=== PATIENT | female | born 1950 | race Caucasian/White ===

== ENCOUNTER → 2016-11-02 07:38 | Outpatient (CLI) | payer MEDICARE | END | disposition home or self-care (01) | LOC: D.MRI 07:38 | DX: M54.12 Radiculopathy, cervical region (principal) ==

== ENCOUNTER → 2016-11-07 17:03 | Outpatient (CLI) | payer MEDICARE | END | disposition home or self-care (01) | LOC: D.MAMMO 09:30 | DX: Z12.31 Encounter for screening mammogram for malignant neoplasm of breast (principal) ==

== ENCOUNTER → 2016-12-02 09:42 | Outpatient (CLI) | payer MEDICARE | END | disposition home or self-care (01) | LOC: D.MRI 09:42 | DX: M51.36 Other intervertebral disc degeneration, lumbar region (principal) ==

== ENCOUNTER 2018-04-19 23:20 | Outpatient (CLI) | payer MEDICARE ==
[~2018-04-19] VITALS: Ht 160 cm; Wt 59.1 kg
--- NOTE | ~2018-04-19 | OP ---
PATIENT NAME: LEONILA CHAMBERLAIN V MEDICAL RECORD: [id number] :50 LOCATION:D.M2 D.2117 ADMISSION DATE:04/20/18 SURGEON: ADWOA GERONIMO MD DATE OF OPERATION: 04/20/2018 PROCEDURE: Left heart catheterization, LV gram, coronary angiogram, MORALES angiogram, SVG angiogram. INDICATIONS: Unstable angina. PROCEDURE IN DETAIL: The patient was brought to cardiac catheterization lab in stable condition. Both groins were sterilely prepped and draped. The right femoral artery was accessed using modified Seldinger technique. We were then able to place a 6-Nepali sheath in a retrograde fashion. We were then able to utilize selective angiography into the left coronary artery, the right coronary artery, the vein graft to the RCA, the MORALES to the LAD and the left ventricular cavity for complete left heart catheterization and grafts. FINDINGS: 1. Left main has mild plaquing. 2. LAD is a small vessel and has diffuse atherosclerotic changes in the 50% to 70% range with no severe stenosis seen and competitive flow in the distal LAD segment from MORALES graft. 3. The circumflex is a nondominant vessel, has 100% occlusion distally. In the ostium, there is to 50% to 70% stenosis. 4. The RCA has a long 99% stenoses in it with competitive flow from a vein graft. 5. The MORALES to the LAD is widely patent; however, it is in a small vessel and is not well matured, appears to have share competitive flow with the distal LAD solomon system. 6. The SVG to the RCA is widely patent. HEMODYNAMICS: Left ventricular ejection fraction is 65%. End-diastolic pressure is normal. There is no significant mitral regurgitation. There is no gradient across the aortic valve. IMPRESSION: Two of two grafts patent with an intermediate stenosis in the circumflex. We were trying to do an FFR on the circumflex, but the equipment did not allow. We are going to try medical management initially and then if that fails, go forward with stress testing to localize any ischemic areas, but at this point in time, the patient has good perfusion in all 3 vascular territories. TRANSINT:[id number] Voice Confirmation ID: [id number] DOCUMENT ID: [id number] ADWOA GERONIMO MD at 1348 CC: [id number] DICTATION DATE: 04/20/18 1033 FIELD MANAGER: 04/20/18 1449 DIS IN 04/20/18 [facility] [address] [id number]
--- NOTE | ~2018-04-19 | HEMODYNAMI ---
PATIENT:LEONILA CHAMBERLAIN V MEDICAL RECORD: [id number] : 50 [id number] ADMISSION DATE: 04/20/18 Generatedon:04/20/201810:29 Patient name: LEONILA CHAMBERLAIN Patient #: [id number] SSN: DO B: 1950 Date of study: 04/20/2018 Page: Of Hemodynamic Procedure Report Patient Data Patient Demographics Procedure consent was obtained First Name: LEONILA Gender: Female Last Name: BULMARO : 1950 Middle Initial: V Age: 67 year(s) Patient #: [id number] Race: Unknown Additional ID: [id number] Contact details [address]: [address] [place] [address] State: [place] City: [place] Zip code: [address] Past Medical History Allergies Allergen Reaction Date Comments Reported Other allergy 04/20/2018 shellfish Admission Admission Data Admission Date: 04/20/2018 Admission Time: 3:24 Room #: D.[facility] Weight (lbs.): 130.27 Weight (kg.): 59.09 Lab Results Lab Result Date: 04/19/2018 Lab Result Time: 23:40 Biochemistry Name Units Result Min Max BUN mg/dl 17 --(---*)-- 7 18 Creatinine mg/dl 0.7 --(*---)-- 0.6 1.3 CBC Name Units Result Min Max Hematocrit % 38.2 *-(----)-- 42 54 Hemoglobin g/dl 13.1 -*(----)-- 13.5 17.5 Procedure Procedure Types Cath Procedure Diagnostic Procedure LHC LHC w/Coronaries w/Grafts Sedation Charges Moderate Sedation up to 30 minutes Procedure Description Procedure Date Procedure Date: 04/20/2018 Procedure Start Time: 9:43 Procedure End Time: 10:28 Procedure Staff Name Function Akira Paige MD Performing Physician Zabrina Snyder RT Monitor Bell Soria RT Scrub Jules Levy RN Nurse Procedure Data Cath Procedure Fluoroscopy Diagnostic fluoroscopy Total fluoroscopy Time: 4.7 time: 4.7 min min Diagnostic fluoroscopy Total fluoroscopy dose: 374 dose: 374 mGy mGy Contrast Material Contrast Material Type Amount (ml) Isovue 300 107 Entry Location Entry Primary Successful Side Size Upsize Upsize Entry Closure Succes sful Closure Location (Fr) 1 (Fr) 2 (Fr) Remarks Device Remarks Femoral Right 5 Fr 6 Fr artery Short Estimated blood loss: 10 ml Diagnostic catheters Device Type Used For End Catheter Placement MULTIPACK JL 4.0 5Fr Procedure catheter MULTIPACK 3DRC 5Fr Procedure catheter DIAGNOSTIC MPA-2 5Fr Procedure catheter ([id number]) MULTIPACK Pigtail 5 Fr Procedure catheter MULTIPACK JL 4.0 5Fr Procedure catheter Procedure Complications No complications Procedure Medications Medication Administration Route Dosage 0.9% NaCl I.V. 100 ml/hr Oxygen etCO2 Nasal cannula 2 l/min Heparin Flush Bag added to field 2 bags (1000units/500ml NS) Lidocaine 2% added to field 20 Versed I.V. 1 mg Fentanyl I.V. 25 mcg Heparin Bolus I.V. 2000 units Versed I.V. 1 mg Hemodynamics Rest HGB: 13.1 (g/dl) Heart Rate: 60 (bpm) Pressure Samples Time Site Value (mmHg) Purpose Heart Use Rate(bpm) 9:57 AO 120/55(79) Snapshot 58 9:58 LV 118/-8,13 EDP 67 Gradients Valve Time Site Site Mean SEP/DFP Peak To Heart Use 1 2 (mmHg) (sec/min) Peak Rate (mmHg) (bpm) Aortic 9:59 LV AO 57 Snapshots Pre Cath Intra NCS Post Cath Vital Signs Time Heart Resp SPO2 etCO2 NIBP (mmHg) Rhythm Pain Sedation Rate (ipm) (%) (mmHg) Status Level (bpm) 9:25:22 56 19 94 0 177/94(155) NSR 0 (11) 10(A) , No pain 9:29:48 56 12 95 0 156/82(132) NSR 0 (11) 10(A) , No pain 9:34:08 58 14 94 0 133/76(101) NSR 0 (11) 10(A) , No pain 9:38:22 60 12 96 0 115/70(85) NSR 0 (11) 10(A) , No pain 9:42:46 55 19 91 0 116/69(86) NSR 0 (11) 10(A) , No pain 9:46:54 55 18 90 12.8 135/73(112) NSR 0 (11) 10(A) , No pain 9:51:18 58 12 94 28.6 119/74(97) NSR 0 (11) 10(A) , No pain 9:55:27 60 12 95 44.5 122/71(98) NSR 0 (11) 10(A) , No pain 9:59:36 58 19 95 0 123/71(98) NSR 0 (11) 9(A) , No pain 10:03:42 53 19 97 27.1 126/81(92) NSR 0 (11) 9(A) , No pain 10:07:52 59 14 96 30.2 130/72(112) NSR 0 (11) 9(A) , No pain 10:12:16 57 19 97 26.4 135/78(111) NSR 0 (11) 9(A) , No pain 10:16:42 57 19 99 38.5 141/72(118) NSR 0 (11) 9(A) , No pain 10:20:56 57 16 98 38.5 134/79(113) NSR 0 (11) 10(A) , No pain 10:25:08 57 16 98 32.4 139/77(122) NSR 0 (11) 10(A) , No pain Medications Time Medication Route Dose Verified Delivered Reason Notes Effectiveness by by 9:28:07 0.9% NaCl I.V. 100 Jules Jules Per physician ml/hr Cam Levy RN RN 9:28:18 Oxygen etCO2 2 Jules Jules Per physician Nasal l/min Cam Levy cannula RN RN 9:28:28 Heparin Flush added 2 Jules Jules used for Bag to bags Cam Levy procedure (1000units/500ml field PONCE RN NS) 9:28:39 Lidocaine 2% added 20ml Jules Jules for local to vial Lorigan Cam anesthetic field PONCE RN 9:41:43 Versed I.V. 1 mg Jules Jules for sedation Cam Levy RN RN 9:42:29 Fentanyl I.V. 25 Jules Jules for sedation mcg Lorigan Lorigan RN RN 10:03:43 Heparin Bolus I.V. 2,000 Jlues Jules for units Cam Levy anticoagulation RN RN 10:26:17 Versed I.V. 1 mg Jules Jules for sedation Cam Levy RN apartment leasing specialist Log Time Note 9:07:13 Sajan Amaral RN sent for patient. Start room use. 9:07:14 Time tracking: Regular hours (M-F 7:00 - 5:00) 9:07:19 Plan of Care:Hemodynamics will remain stable., Cardiac rhythm will remain stable., Comfort level will be maintained., Respiratory function will remain adequate., Patient/ family verbilizes understanding of procedure., Procedure tolerated without complication., Recovers from procedure without complications.. 9:20:31 Patient received from Med II to CCL 2 Alert and oriented. Tansferred to table in Supine position. 9:20:32 Warm blankets applied, and maru hugger turned on for patient comfort. 9:20:33 Correct patient and procedure confirmed by team. 9:20:34 Signed procedure consent form obtained from patient. 9:20:35 ECG and BP/O2 sat monitors applied to patient. 9:20:46 H&P Date Dictated: 04/20/2018 Within 30 days and on chart.. 9:20:48 Pre-procedure instructions explained to patient. 9:20:48 Pre-op teaching completed and patient verbalized understanding. 9:20:56 Family unavailable. 9:20:57 Patient NPO since Midnight. 9:21:05 Patient allergic to Other allergyshellfish 9:21:06 Is the patient allergic to Iodine/contrast media? Yes. 9:21:07 Was the patient premedicated? Yes 9:21:27 Patient Weight : 130.27 lbs 9:21:43 IV patent on arrival in left antecubital with 0.9% NaCl at [facility]. 9:22:23 Lab Result : BUN 17 mg/dl 9:22:23 Lab Result : Creatinine 0.7 mg/dl 9:22:23 Lab Result : Hemoglobin 13.1 g/dl 9:22:23 Lab Result : Hematocrit 38.2 % 9:22:26 Lab results completed and on chart. 9:23:10 Vital chart was started 9:23:11 Baseline sample Acquired. 9:23:15 Rhythm: sinus rhythm 9:23:16 Full Disclosure recording started 9:23:22 Patient diabetic? No. 9:23:29 Previous problem with sedation/anesthesia? Yes nausea 9:23:30 Snore? Yes 9:23:31 Sleep apnea? No 9:23:31 Deviated septum? No 9:23:32 Opens mouth fully? Yes 9:23:33 Sticks out tongue? Yes 9:23:35 Airway obstruction? No ? 9:23:37 Dentures? No ? 9:23:39 Pre procedure: right dorsailis pedis pulse 2+ Normal; easily identifiable; not easily obliterated 9:23:42 Patient pain scale 0/10 ?. 9:23:45 Right groin area was prepped with chlora-prep and draped in sterile fashion 9:23:47 Alarms reviewed by R. N. 9:23:47 Sharps counted by scrub and verified by R.N. 9:23:49 Use device set Femoral Dx 9:23:50 ACIST Syringe (45817) opened to sterile field. 9:23:50 Bag Decanter (2002S) opened to sterile field. 9:23:51 Medline Cath Pack ([id number]) opened to sterile field. 9:23:51 ACIST Hand Control (12245) opened to sterile field. 9:23:52 ACIST Manifold (49837) opened to sterile field. 9:23:52 Tegaderm 4 x 4 (1626W) opened to sterile field. 9:23:54 SHEATH Prelude 5Fr 0.035 (BXG-8G-65-035) opened to sterile field. 9:23:55 DIAGNOSTIC WIRE .035 260cm J wire (280460) opened to sterile field. 9:23:56 DIAGNOSTIC Multipack 5Fr catheter set (GH9728) opened to sterile field. 9:23:57 MICROPUNCTURE 4FR Cook (O16611) opened to sterile field. 9:28:07 0.9% NaCl 100 ml/hr I.V. was administered by Jules Levy RN; Per physician; 9:28:18 Oxygen 2 l/min etCO2 Nasal cannula was administered by Jules Levy RN; Per physician; 9:28:28 Heparin Flush Bag (1000units/500ml NS) 2 bags added to field was administered by Jules Levy RN; used for procedure; 9:28:39 Lidocaine 2% 20ml vial added to field was administered by Jules Levy RN; for local anesthetic; 9:37:02 Physician paged 9:40:55 Physician arrived 9:40:55 --------ALL STOP TIME OUT------ 9:40:56 Final Timeout: patient, procedure, and site verified with staff and physician. All members of the team are in agreement. 9:40:58 Right groin site verified by team. 9:41:02 Physical assessment completed. ASA score P 2 - A patient with mild systemic disease as per Akira Paige MD. 9:41:05 Sedation plan: IV Moderate Sedation Medication:Versed, Fentanyl 9:41:14 Zero performed for pressure channel P1 9:41:43 Versed 1 mg I.V. was administered by Jules Levy RN; for sedation; 9:42:29 Fentanyl 25 mcg I.V. was administered by Jules Levy RN; for sedation; 9:43:18 Procedure started. 9:43:31 Local anesthetic to right femoral artery with Lidocaine 2% by Akira Paige MD.INITIAL ACCESS ONLY 9:47:36 A 5 Fr sheath was inserted into the Right Femoral artery 9:48:35 A MULTIPACK JL 4.0 5Fr catheter was advanced over the wire and used for Procedure. 9:48:40 LCA angiography performed. 9:50:22 Catheter removed. 9:50:31 A MULTIPACK 3DRC 5Fr catheter was advanced over the wire and used for Procedure. 9:51:41 RCA angiography performed. 9:52:02 MORALES angiography performed. 9:53:20 Catheter removed. 9:53:48 A DIAGNOSTIC MPA-2 5Fr catheter ([id number]) was advanced over the wire and used for Procedure. 9:55:45 SVG to RCA angiography performed. 9:56:46 Catheter removed. 9:57:36 A MULTIPACK Pigtail 5 Fr catheter was advanced over the wire and used for Procedure. 9:57:41 LV angiography performed. 9:59:09 EF : 65 % 9:59:14 Catheter removed. 9:59:58 A MULTIPACK JL 4.0 5Fr catheter was advanced over the wire and used for Procedure. 10:00:35 LCA angiography performed. 10:03:21 Catheter removed. 10:03:26 Sheath upsized to a 6 Fr Short. 10:03:43 Heparin Bolus 2,000 units I.V. was administered by Jules Levy RN; for anticoagulation; 10:05:09 GUIDE 6FR JL 3.5 guide catheter ([id number]) opened to sterile field. 10:05:11 INFLATOR Merit BasixCompak (GX3517) opened to sterile field. 10:05:23 6 Fr jl3.5 guide catheter was inserted over the wire 10:09:19 SHEATH 6Fr Prelude Radial ([id number]) opened to sterile field. 10:09:55 Hollywood Verrata Plus pressure wire (74377M) opened to sterile field. 10:09:56 COPILOT Valve Control (8189903) opened to sterile field. 10:16:45 Zero performed for pressure channel P1 10:16:50 Zero performed for pressure channel P1 10:16:53 Zero performed for pressure channel P1 10:25:23 MeKesson would not communicate with the FFR. 10:25:29 Procedure ended.(Physican Out) 10:25:45 Fluoroscopy time 04.70 minutes. 10:25:52 Fluoroscopy dose: 374 mGy 10:25:52 Flurop Dose total: 374 10:26:05 Contrast amount:Isovue 300 107ml. 10:26:17 Versed 1 mg I.V. was administered by Jules Levy RN; for sedation; 10::43 Sharps counted by scrub and verified by R.N. 10:26:44 Insertion/operative site no bleeding no hematoma. 10:26:51 Post right femoral artery:stable 10:27:08 Post-procedure physical assessment completed. ASA score P 2 - A patient with mild systemic disease as per Akira Paige MD. 10:27:15 Post procedure rhythm: sinus rhythm 10:27:19 Estimated blood loss: 10 ml 10:27:20 Post procedure instruction explained to patient.Patient verbalizes understanding. 10:27:42 Procedure type changed to Cath procedure, Diagnostic procedure, LHC, LHC w/Coronaries w/Grafts, Sedation Charges, Moderate Sedation up to 30 minutes 10:27:44 Procedure and supply charges have been captured, reviewed, submitted and are correct. 10:28:14 Procedure Complication : No complications 10:28:18 Vital chart was stopped 10:28:23 See physician's report for complete and final results. 10:28:38 Report given to Pre/Post Procedure Room. 10:28:43 Patient transfered to Pre/Post Procedure Room with Bed. 10:28:45 Procedure ended. 10:28:45 Full Disclosure recording stopped 10:28:50 End room use (Document Last) 10:28:50 End room use (Document Last) Device Usage Item Name Manufacture Quantity Catalog Number [facility] Part Manpreet childs Minimal Lot# / Charge Number Stock Stock Serial# Code ACIST Syringe Acist 1 36437 249371 250146 144359 20 (31844) Medical Systems [employer] Management Bag Decanter Microtek 1 2001S 767020 12063 517120 5 (2001S) Medical Inc. Medline Cath Cardinal 1 [id number] 489382 59396 048126 5 Pack Health ([id number]) ACIST Hand Acist 1 46117 629512 028961 868720 5 Control (38059) Medical Systems Inc ACIST Manifold Acist 1 54238 334166 438893 946526 5 (17415) Medical Systems Inc Tegaderm 4 x 4 3M 1 1626W 704386 148560 177191 5 (1626W) SHEATH Prelude Merit 1 PWF-2C-14-035 717243 442939 369101 5 5Fr 0.035 Medical (DVS-5H-22-035) DIAGNOSTIC WIRE St Ric 1 564414 216337 536958 061011 30 .035 260cm J wire (190447) DIAGNOSTIC Cardinal 1 JG8413 247767 47297 503458 30 Multipack 5Fr Health catheter set (AG6112) MICROPUNCTURE Cook Medical 1 B68659 324079 674262 462664 5 4FR Cook (Q99999) MULTIPACK JL Cardinal 1 657415 5 4.0 5Fr Health catheter MULTIPACK 3DRC Cardinal 1 333231 5 5Fr catheter Health DIAGNOSTIC Cardinal 1 [id number] 794552 668155 017934 5 MPA-2 5Fr Health catheter (968220T) MULTIPACK Cardinal 1 874221 5 Pigtail 5 Fr Health catheter GUIDE 6FR JL Medtronic 1 [id number] 191783 82704 438280 1 3.5 guide catheter (HY9RH09) INFLATOR Merit Merit 1 LB9967 717586 359092 149400 15 CTSpace (TH3899) SHEATH 6Fr Merit 1 [id number] 503711 124549 241131 5 Prelude Radial Medical ([id number]) Hollywood Verrata Hollywood 1 [id number] 915934 742968360 894745 5 Plus pressure wire (82406X) COPILOT Valve Wiseman 1 [id number] 369678 754063 042539 5 Control Vascular (7019867) Signature Audit Ayer Stage Time Signature Unsigned Intra-Procedure 04/20/2018 Zabrina Snyder 10:29:45 AM RT(R) Signatures Monitor : Zabrina Snyder Signature : RT Date : Time : [place] [id number]
[2018-04-19] MEDS ORDERED: ZOCOR40 MG PO (23:30)
[2018-04-19] MEDS ORDERED: NORCO 10-325 TA1 TAB PO (23:30)
[2018-04-19] MEDS ORDERED: SYNTHROID88 MCG PO (23:30)
[2018-04-19 23:45] LABS: BASOPHILS 0.2 % (0-2); EOSINOPHILS 0.3 % (0-7); HEMATOCRIT 38.2 % (36.0-48.0); HEMOGLOBIN 13.1 g/dL (12-16); IMMATURE GRANULOCYTES 0.2 % (0-5); LYMPHOCYTES 17.3 % (15-50); MCH 29.9 pg (26.0-34.0); MCHC 34.3 g/dL (31.0-37.0); MCV 87.2 fL (80.0-100.0); MEAN PLATELET VOLUME 9.5 fL (7.4-10.4); MONOCYTES 10.2 % (2-11); NEUTROPHILS 71.8 % (40-80); PLATELET COUNT 251 10x3/uL (130-400); RBC 4.38 10x6/uL (4.00-5.40); RDW 13.7 % (11.5-14.5); WBC 10.6 10x3/uL (4.8-10.8)
[2018-04-20 00:03] LABS: ALBUMIN 3.9 g/dL (3.4-5.0); ALKALINE PHOSPHATASE 52 U/L (46-116); ALT (SGPT) 23 U/L (10-68); BILIRUBIN - TOTAL 0.29 mg/dL (0.2-1.3); CALC OSMOLALITY 281 mosm/kg (275-300); CALCIUM 8.8 mg/dL (8.5-10.1); CARBON DIOXIDE 25.4 mmol/L (21.0-32.0); CHLORIDE - SERUM 105 mmol/L (98-107); CREATININE - SERUM 0.7 mg/dL (0.6-1.3); GLUCOSE 110 mg/dL (74-106); POTASSIUM - SERUM 4.1 mmol/L (3.5-5.1); PROTEIN - SERUM 7.5 g/dL (6.4-8.2); SODIUM 140 mmol/L (136-145); UREA NITROGEN 17 mg/dL (7-18); eGFR NON AFRICAN AMERICAN 88 mL/min (90-120)
[2018-04-20 00:12] LABS: CKMB 0.5 U/L (0.0-3.6); CREATINE KINASE 67 UL (21-215)
[2018-04-20 00:13] LABS: TROPONIN-I < 0.017 ng/mL (0.000-0.060)
[2018-04-20 01:06] VITALS: BP 161/91
[2018-04-20 02:00] VITALS: BP 137/79
[2018-04-20 04:43] VITALS: BP 163/80; BMI 23.0
[2018-04-20 07:13] LABS: CKMB 0.5 U/L (0.0-3.6); CREATINE KINASE 52 UL (21-215)
[2018-04-20 07:14] LABS: TROPONIN-I < 0.017 ng/mL (0.000-0.060)
[2018-04-20 08:28] VITALS: Ht 160 cm; Wt 59.1 kg
[2018-04-20 08:32] VITALS: BP 134/66
[2018-04-20 10:03] LABS: BASOPHILS 0.4 % (0-2); EOSINOPHILS 0.6 % (0-7); HEMATOCRIT 35.7 % (36.0-48.0); IMMATURE GRANULOCYTES 0.2 % (0-5); LYMPHOCYTES 28.9 % (15-50); MCH 29.4 pg (26.0-34.0); MCHC 33.6 g/dL (31.0-37.0); MCV 87.5 fL (80.0-100.0); MEAN PLATELET VOLUME 9.6 fL (7.4-10.4); MONOCYTES 11.1 % (2-11); NEUTROPHILS 58.8 % (40-80); PLATELET COUNT 238 10x3/uL (130-400); RBC 4.08 10x6/uL (4.00-5.40); RDW 13.8 % (11.5-14.5)
[2018-04-20 10:07] LABS: CALC OSMOLALITY 285 mosm/kg (275-300); CALCIUM 8.8 mg/dL (8.5-10.1); CHLORIDE - SERUM 106 mmol/L (98-107); CREATININE - SERUM 0.7 mg/dL (0.6-1.3); GLUCOSE 101 mg/dL (74-106); POTASSIUM - SERUM 4.6 mmol/L (3.5-5.1); SODIUM 143 mmol/L (136-145); UREA NITROGEN 15 mg/dL (7-18); eGFR NON AFRICAN AMERICAN 88 mL/min (90-120)
[2018-04-20 10:14] LABS: WBC 5.1 10x3/uL (4.8-10.8)
[2018-04-20 15:20] VITALS: BP 113/68
[2018-04-20] MEDS ORDERED: LIPITOR20 MG PO (16:30)
[2018-04-20] MEDS ORDERED: ASPIRIN325 MG PO (16:30)
[2018-04-20] MEDS ORDERED: ISOSORBIDE DINI10 MG PO (16:30)
== END 2018-04-20 17:35 | disposition home or self-care (01) ==
LOC: OBSVTIME → D.OPS 23:20 → D.ER 23:20 → D.M2 04-20 03:24 → OBSVTIME 04-20 03:24 → D.ER 04-20 03:24 → D.M2 04-20 03:24 → D.ER 04-20 04:02 → EDSTATUS 04-20 14:00 → D.M2 04-20 17:35 → D.OPS 04-20 17:35
PROVIDERS: Family Medicine; Internal Medicine Cardiovascular Disease
DX: I25.110 Atherosclerotic heart disease of native coronary artery with unstable angina pectoris (principal); Z95.1 Presence of aortocoronary bypass graft; M54.9 Dorsalgia, unspecified; E78.5 Hyperlipidemia, unspecified; E03.9 Hypothyroidism, unspecified; I10 Essential (primary) hypertension